=== PATIENT | female | born 1955 | race Caucasian/White ===

== ENCOUNTER 2018-10-26 13:12 | Emergency (ER) | payer BC ==
[~2018-10-26] VITALS: Ht 160 cm; Wt 155.0 kg
[~2018-10-26 13:12] MED LIST: BENA40TA56 PO; CARV3.1238 PO; FURO40TA4 PO; HYDR25TA6 PO; LISI10TA2 PO; MECL-77 PO; POTA20TA15 PO
[2018-10-26 13:17] VITALS: Ht 160 cm; Wt 155.0 kg
[2018-10-26] MEDS ORDERED: LIDOCAINE 1% (MPF) 30 ML INJ INJ STA (13:40)
[2018-10-26] MEDS ORDERED: CLIN300C10 PO (14:40)
[2018-10-26] MEDS ORDERED: ACET325T33 PO (14:40)
[2018-10-26 15:19] VITALS: BP 142/98; PULSE 70; RESP 19
--- NOTE | 2018-10-26 18:02 | ERD ---
ER Documentation Chief Complaint Chief Complaint LEFT GREAT TOE NAIL PROBLEM HPI 63 year old female complains of moderate left great toe nail pain from an ingrown toe nail that is worsening. She was seen by another physician about 1.5 week ago and was given keflex without any relief. Denies trauma. ROS All systems reviewed and are negative except as per history of present illness. Medications Home Meds Active Scripts Acetaminophen* (Tylenol*) 325 Mg Tablet, 2 TAB PO Q6 PRN for PAIN AND OR ELEVATED TEMP, #30 TAB Prov:PRISCILLA SALMON PA-C 10/26/18 Clindamycin Hcl* (Clindamycin Hcl*) 300 Mg Capsule, 300 MG PO TID for 10 Days, CAP Prov:PRISCILLA SALMON PA-C 10/26/18 Reported Medications Hydrochlorothiazide (Hydrochlorothiazide) 25 Mg Tablet, 25 MG PO HS 10/02/12 Meclizine Hcl* (Meclizine Hcl*) 25 Mg Tablet, 25 MG PO DAILY 10/02/12 Lisinopril* (Lisinopril*) 10 Mg Tablet, 10 MG PO DAILY 10/02/12 Benazepril Hcl* (Benazepril Hcl*) 40 Mg Tablet, 40 MG PO DAILY 10/02/12 Potassium Chloride* (K-Dur*) 20 Meq Tab.prt.sr, 20 MEQ PO BID 10/02/12 Furosemide (Lasix) 40 Mg Tab, 40 MG PO DAILY 10/02/12 Carvedilol* (Coreg*) 3.125 Mg Tablet, 3.125 MG PO BID 10/02/12 Allergies Allergies: Coded Allergies: Codeine (Verified Allergy, 10/11/12) aspirin (Verified Allergy, GI UPSET, 10/11/12) Uncoded Allergies: BLOOD THINNERS (Allergy, Mild, KIDNEY PROBLEM, 07/08/12) STATES HAD SOME KIDNEY REACTION W/ BLOOD THINNER BEFORE PMhx/Soc History of Surgery: Yes (gall bladder removal in 1991, abdominoplasty 1999) Anesthesia Reaction: No Hx Neurological Disorder: No Hx Respiratory Disorders: Yes (CHF) Hx Cardiac Disorders: Yes (CHF, LEFT SIDE HEART VALVE DYSFXN) Hx Psychiatric Problems: No Hx Alcohol Use: No Hx Substance Use: No Hx Tobacco Use: No Smoking Status: Never smoker Physical Exam Vitals Vital Signs Date Temp Pulse Resp B/P (MAP) Pulse Ox O2 O2 Flow FiO2 Time Delivery Rate 10/26/18 98.2 70 19 142/98 99 Room Air 15:19 (113) 10/26/18 74 20 145/112 96 13:17 (123) Physical Exam Const: No acute distress Head: Atraumatic Eyes: Normal Conjunctiva ENT: Normal External Ears, Nose and Mouth. Neck: Full range of motion. No meningismus. Resp: Clear to auscultation bilaterally Cardio: Regular rate and rhythm, no murmurs Abd: Soft, non tender, non distended. Normal bowel sounds Skin: ingrown toe nail lateral aspect of the left great toe Back: No midline or flank tenderness Ext: No cyanosis, or edema Neur: Awake and alert Psych: Normal Mood and Affect Results 24 hrs Current Medications Medications Dose Sig/Dionisio Start Time Status Last (Trade) Ordered Route PRN Stop Time Admin Dose Reason Admin Lidocaine 30 ml ONCE STAT 10/26/18 DC (Xylocaine INJ 13:40 10/26/18 1% (Mpf)) 13:41 Procedures/MDM 63 year old female patient presents to the ED with an ingrown toe nail, nail avulsion procedure was done to relieve patient's pain. PROCEDURE NOTE: consent was obtained. Region was cleansed with povidone-iodine solution. A standard digital block was preformed using approximately 10cc of lidocaine without epinephrine. A wait for 10 minutes was allowed for anesthetic to become effective. The region was cleansed again with povidone-iodine solution. A nail elevator was slid under the cuticle to separate the nail plate from the overlying proximal nail fold. The lateral 20-30% of the nail plate was cut free using bandage scissors and gently pulled free with a hemostat. Xeroform gauze was then applied followed by bulky dry gauze dressing. The patient tolerated the procedure well without complications. Standard post-procedure care is explained and return precautions are given. DISPOSITION: hemodynamically stable and neurovascularly intact pre & post treatment. Prescriptions Clinda have been given. Instructions to return in two days for a wound check has been given, discussed to return sooner if condition worsens. 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 Return to this facility if you are not improving as expected. PRISCILLA SALMON PA-C Oct 26, 2018 18:02
== END 2018-10-26 15:22 | disposition home or self-care (01) ==
LOC: FTE 13:12
DX: L03.032 Cellulitis of left toe (principal); S91.202A Unspecified open wound of left great toe with damage to nail, initial encounter; I50.9 Heart failure, unspecified; X58.XXXA Exposure to other specified factors, initial encounter; Y92.9 Unspecified place or not applicable
CPT/HCPCS: 11765; 99283; L3260

== ENCOUNTER 2019-01-23 11:07 | Emergency (ER) | payer BC ==
[~2019-01-23] VITALS: Ht 162.6 cm; Wt 180.0 kg
[~2019-01-23 11:07] MED LIST changes: +ACET325T33 PO; +CLIN300C10 PO
[2019-01-23 11:19] VITALS: Ht 162.6 cm; Wt 180.0 kg
[2019-01-23] MEDS ORDERED: CLIN300C10 PO (13:05)
--- NOTE | 2019-01-23 13:10 | ERD ---
ER Documentation Chief Complaint Chief Complaint possible abscess under abdomen HPI This is a 63-year-old female who is morbidly obese complaining of a area of irritation that she had on her lower abdomen on the right side she is had for several weeks and she states she was cleaning it 3 days ago and noticed it was starting to open up. There is been some mild clear fluid draining from it. No fever. She states the area around it is getting red. No purulent drainage from it. No nausea vomiting or diarrhea. ROS All systems reviewed and are negative except as per history of present illness. Medications Home Meds Active Scripts Clindamycin Hcl* (Clindamycin Hcl*) 300 Mg Capsule, 300 MG PO TID for 10 Days, CAP Prov:KYLE VALEROC 01/23/19 Acetaminophen* (Tylenol*) 325 Mg Tablet, 2 TAB PO Q6 PRN for PAIN AND OR ELEVATED TEMP, #30 TAB Prov:PRISCILLA SALMONC 10/26/18 Clindamycin Hcl* (Clindamycin Hcl*) 300 Mg Capsule, 300 MG PO TID for 10 Days, CAP Prov:PRISCILLA SALMON-C 10/26/18 Reported Medications Hydrochlorothiazide (Hydrochlorothiazide) 25 Mg Tablet, 25 MG PO HS 10/02/12 Meclizine Hcl* (Meclizine Hcl*) 25 Mg Tablet, 25 MG PO DAILY 10/02/12 Lisinopril* (Lisinopril*) 10 Mg Tablet, 10 MG PO DAILY 10/02/12 Benazepril Hcl* (Benazepril Hcl*) 40 Mg Tablet, 40 MG PO DAILY 10/02/12 Potassium Chloride* (K-Dur*) 20 Meq Tab.prt.sr, 20 MEQ PO BID 10/02/12 Furosemide (Lasix) 40 Mg Tab, 40 MG PO DAILY 10/02/12 Carvedilol* (Coreg*) 3.125 Mg Tablet, 3.125 MG PO BID 10/02/12 Allergies Allergies: Coded Allergies: Codeine (Verified Allergy, 10/11/12) aspirin (Verified Allergy, GI UPSET, 10/11/12) Uncoded Allergies: BLOOD THINNERS (Allergy, Mild, KIDNEY PROBLEM, 07/08/12) STATES HAD SOME KIDNEY REACTION W/ BLOOD THINNER BEFORE PMhx/Soc History of Surgery: Yes (gall bladder removal in 1991, abdominoplasty 1999) Anesthesia Reaction: No Hx Neurological Disorder: No Hx Respiratory Disorders: Yes (CHF) Hx Cardiac Disorders: Yes (CHF, LEFT SIDE HEART VALVE DYSFXN) Hx Psychiatric Problems: No Hx Alcohol Use: No Hx Substance Use: No Hx Tobacco Use: No FmHx Family History: No diabetes Physical Exam Vitals Vital Signs Date Temp Pulse Resp B/P (MAP) Pulse Ox O2 O2 Flow FiO2 Time Delivery Rate 01/23/19 98.4 72 20 180/78 97 11:19 (112) Physical Exam Const: No acute distress, morbidly obese Head: Atraumatic Eyes: Normal Conjunctiva ENT: Normal External Ears, Nose and Mouth. Neck: Full range of motion. No meningismus. Resp: Clear to auscultation bilaterally Cardio: Regular rate and rhythm, no murmurs Abd: Soft, non tender, non distended. skin: Right side mid lower abdomen there is a small opening of the skin less than half a centimeter, there is no bleeding or drainage, no significant surrounding erythema, no warmth Procedures/MDM This is a 63-year-old morbidly obese female who presents with a small opening on her skin on her lower abdominal skin fold. This happened about 3 days ago. No fever, no tachycardia. It is less than a centimeter in length, there is no significant surrounding erythema however is at risk for infection and she was placed on clindamycin. I recommended she keep the wound clean and dry. She should have a wound check either here or her primary care office in 2 days or sooner for new or worsening symptoms. Patient counseled regarding my diagnostic impression and care plan. Prior to discharge all questions answered. Pt agrees with treatment plan and understands strict return precautions. Pt is instructed to follow up with primary care provider within 24-48 hours. Precautionary instructions provided including instructions to return to the ER if not improving or for any worsening or changing symptoms or concerns. Departure Diagnosis: Primary Impression: Open wound Condition: Stable Patient Instructions: Wound Care Additional Instructions: Call your primary care doctor TOMORROW for an appointment during the next 1-2 days.See the doctor sooner or return here if your condition worsens before your appointment time. KYLE VALERO PA-C January 23, 2019 13:10
== END 2019-01-23 13:53 | disposition home or self-care (01) ==
LOC: FTE 11:07
DX: S31.103A Unspecified open wound of abdominal wall, right lower quadrant without penetration into peritoneal cavity, initial encounter (principal); I50.9 Heart failure, unspecified; X58.XXXA Exposure to other specified factors, initial encounter; Y92.9 Unspecified place or not applicable
CPT/HCPCS: 99283